=== PATIENT | female | born 1950 | race Caucasian/White ===

== ENCOUNTER 2024-03-04 10:09 | Outpatient (CLI) | payer OTHER, SELFPAY | END 2024-03-04 10:10 | disposition home or self-care (01) | LOC: AMB 03-12 06:33 | PROVIDERS: Visit Provider Student in an Organized Health Care Education/Training Program | DX: R55 Syncope and collapse (principal); R42 Dizziness and giddiness | CPT/HCPCS: A0425; A0427 ==